=== PATIENT | male | born 1950 | race Caucasian/White ===

== ENCOUNTER 2023-11-01 17:00 | Outpatient (CLI) | payer MEDICARE, BC | END 2023-11-01 17:01 | disposition home or self-care (01) | LOC: SLEEPLAB 17:00 | PROVIDERS: ATTEND Family Medicine | DX: G47.33 Obstructive sleep apnea (adult) (pediatric) (principal) | CPT/HCPCS: 95800 ==

== ENCOUNTER 2024-07-30 14:48 | Outpatient (CLI) | payer MEDICARE | END 2024-07-30 14:49 | disposition home or self-care (01) | LOC: BICRAD 14:48 | PROVIDERS: ATTEND Family Medicine | DX: M25.511 Pain in right shoulder (principal); M19.011 Primary osteoarthritis, right shoulder; M47.812 Spondylosis without myelopathy or radiculopathy, cervical region ==

== ENCOUNTER 2024-12-05 10:10 | Outpatient (CLI) | payer MEDICARE | END 2024-12-05 10:11 | disposition home or self-care (01) | LOC: BICMRI 10:10 | PROVIDERS: ATTEND Student in an Organized Health Care Education/Training Program | DX: M47.22 Other spondylosis with radiculopathy, cervical region (principal); M48.02 Spinal stenosis, cervical region; M48.03 Spinal stenosis, cervicothoracic region | CPT/HCPCS: 72141 ==